=== PATIENT | female | born 1970 | race Caucasian/White ===

== ENCOUNTER 2018-06-16 15:17 | Observation (INO) | payer BC, OTHER ==
--- NOTE | 2018-06-16 15:37 | PDOC ---
Rapid Medical Evaluation Time Seen by Provider: 06/16/18 15:33 Medical Evaluation: Allergies Allergy/AdvReac Type Severity Reaction Status Date / Time erythromycin base Allergy Rash Verified 05/01/11 10:00 [Erythromycin Base] [facility] Allergy Vomiting Uncoded 05/01/11 10:00 06/16/18 15:33 I have performed a brief in-person evaluation of this patient. The patient presents with a chief complaint of: left facial swelling s/p root canal Pertinent physical exam findings: palpable abscess to left upper molar on bucchal surface I have ordered the following: urine, labs, ct facial bones with IV contrast The patient will proceed to the ED for further evaluation. Discharge Disposition - Diagnosis Facial swelling - Referrals - Patient Instructions - Post Discharge Activity
--- NOTE | 2018-06-16 16:09 | PDOC ---
History of Present Illness - General Chief Complaint: Pain, Acute Stated Complaint: PAIN Time Seen by Provider: 06/16/18 15:33 History Source: Patient - History of Present Illness Timing/Duration: other Past History - Past Medical History Allergies/Adverse Reactions: Allergies Allergy/AdvReac Type Severity Reaction Status Date / Time erythromycin base Allergy Rash Verified 06/16/18 15:33 [Erythromycin Base] [facility] Allergy Vomiting Uncoded 06/16/18 15:33 Home Medications: Ambulatory Orders Alprazolam [Xanax] 0.5 mg PO PRN 06/16/18 Clonazepam [Klonopin] 2 mg PO HS 06/16/18 Duloxetine HCl [Cymbalta] 60 mg PO BID 06/16/18 Asthma: Yes COPD: No Psychiatric Problems: Yes (ANXIETY, DEPRESSION) - Immunization History Immunization Up to Date: Yes - Suicide/Smoking/Psychosocial Hx Smoking Status: Yes Smoking History: Current every day smoker Number of Cigarettes Smoked Daily: 20 Information on smoking cessation initiated: No Hx Alcohol Use: No Drug/Substance Use Hx: No Review of Systems - Review of Systems Constitutional: No: Chills, Fever, Malaise *Physical Exam - Vital Signs Last Vital Signs Temp Pulse Resp BP Pulse Ox 98.8 F 95 H 18 158/87 98 06/16/18 15:35 06/16/18 15:35 06/16/18 15:35 06/16/18 15:35 06/16/18 15:35 - Physical Exam General Appearance: Yes: Appropriately Dressed, Moderate Distress HEENT: positive: Normal Voice, Other (L cee-orbital edema, most notably under L lower lid with sig ttp to L face diffusely, no sig erythema, no e/o dental abscess) Neck: positive: Supple. negative: Lymphadenopathy (R), Lymphadenopathy (L) Respiratory/Chest: negative: Respiratory Distress Integumentary: positive: Dry, Warm Neurologic: positive: Fully Oriented, Alert, Normal Mood/Affect ED Treatment Course - LABORATORY CBC & Chemistry Diagram: 06/17/18 07:18 06/16/18 16:46 Medical Decision Making - Medical Decision Making 06/16/18 16:07 48 yo F, h/o depression, anxiety, asthma, here w/ severe L facial pain and swelling. Pt s/p root canal to R upper 2nd molar 5 days ago in the [facility], currently on amoxicillin for ~ 10 days. States she awoke the day after surgery w / L facial pain and swelling. Sxs worsened since then. No f/c. Does report some itching to L face, no oral/tongue swelling or SOB. Only allergy is to erythromycin and states she has taken penicillin, including amoxicillin, in the past with no adverse reactions See exam Facial cellulitis s/p recent root canal to R upper tooth On amox w/ no relief Unlikely allergic rxn given significant pain and no known allergies to pen ( which pt took in past) Exam remarkable for mod distress w/ L facial swelling extending into L cee- orbital area, no e/o abscess at this time -pain control -IV abx -admit 06/16/18 19:00 Pt signed out to DAYAMI Saldaña pending CT read and admission *DC/Admit/Observation/Transfer Diagnosis at time of Disposition: Facial cellulitis - Referrals - Patient Instructions - Post Discharge Activity
[2018-06-16] MEDS ORDERED: morphine CARPU-JECT 4 MG/1 ML DISP.SYRIN IVPUSH ONE (16:10)
[2018-06-16] MEDS ORDERED: CLINDAMYCIN 600MG PREMIX IVPB 600 MG/50 ML BAG IVPB ONE ×2 (16:10→16:15)
[2018-06-16] MEDS ORDERED: morphine SULFATE 4 MG/ML VIAL ONE (16:16)
[2018-06-16] MEDS ORDERED: KETOROLAC TROMETHAMINE 30 MG/1 ML VIAL IVPUSH ONE (16:23)
[2018-06-16] MEDS ORDERED: KETOROLAC TROMETHAMINE 30 MG/1 ML VIAL ONE (16:52)
[2018-06-16 17:18] LABS: BASO % 0.7 % (0-2.0); EOS % 2.5 % (0-4.5); HEMATOCRIT 33.3 % (32.4-45.2); HEMOGLOBIN 11.1 GM/dL (10.7-15.3); LYMPH % 28.9 % (8-40); MCH 27.3 pg (25.7-33.7); MCHC 33.3 g/dl (32.0-36.0); MEAN CELL VOLUME 81.9 fl (80-96); MEAN PLT VOLUME 8.6 fl (7.5-11.1); NEUT % 60.9 % (42.8-82.8); PLATELET COUNT 358 K/MM3 (134-434); RBC 4.06 M/mm3 (3.60-5.2); RDW 14.6 % (11.6-15.6); WHITE BLOOD COUNT 8.7 K/mm3 (4.0-10.0)
[2018-06-16 17:46] LABS: ALBUMIN 3.7 g/dl (3.4-5.0); ALK PHOS 95 U/L (45-117); ANION GAP 5 MMOL/L (8-16); BILIRUBIN,TOTAL 0.2 mg/dL (0.2-1); BLOOD UREA NITROGEN 12 mg/dL (7-18); CHLORIDE 104 mmol/L (98-107); CO2 30 mmol/L (21-32); CREATININE 0.7 mg/dL (0.55-1.3); GLUCOSE,RANDOM 102 mg/dL (74-106); POTASSIUM 4.1 mmol/L (3.5-5.1); SGOT/AST 24 U/L (15-37); SGPT/ALT 28 U/L (13-61); SODIUM 139 mmol/L (136-145); TOT PROT 7.4 g/dl (6.4-8.2)
--- NOTE | 2018-06-16 20:25 | PDOC ---
*Physical Exam - Vital Signs Last Vital Signs Temp Pulse Resp BP Pulse Ox 98.8 F 95 H 18 158/87 98 06/16/18 15:35 06/16/18 15:35 06/16/18 15:35 06/16/18 15:35 06/16/18 15:35 - Physical Exam General Appearance: Yes: Appropriately Dressed HEENT: positive: Other (left sided facial swelling, erythema and tednerness. radiating to periorbital/preseptal area) ED Treatment Course - LABORATORY CBC & Chemistry Diagram: 06/16/18 16:46 06/16/18 16:46 - ADDITIONAL ORDERS Additional order review: Laboratory Results 06/16/18 06/16/18 16:46 16:46 Sodium 139 Potassium 4.1 Chloride 104 Carbon Dioxide 30 Anion Gap 5 L BUN 12 Creatinine 0.7 Creat Clearance w eGFR 90.09 Random Glucose 102 Calcium 10.0 Total Bilirubin 0.2 AST 24 ALT 28 Alkaline Phosphatase 95 Total Protein 7.4 Albumin 3.7 Urine HCG, Qual Negative 06/16/18 16:46 RBC 4.06 MCV 81.9 MCHC 33.3 RDW 14.6 D MPV 8.6 Neutrophils % 60.9 D Lymphocytes % 28.9 D Monocytes % 7.0 Eosinophils % 2.5 D Basophils % 0.7 D - Medications Given in the ED: ED Medications Discontinued Medications Generic Name Dose Route Start Last Admin Trade Name Freq PRN Reason Stop Dose Admin Clindamycin Phosphate 600 mg in 50 mls @ 100 mls/hr 06/16/18 16:10 06/16/18 16:39 Cleocin 600 Mg Premix Ivpb - IVPB 06/16/18 16:39 100 mls/hr ONCE ONE Administration Ketorolac Tromethamine 30 mg 06/16/18 16:23 06/16/18 17:53 Toradol Injection - IVPUSH 06/16/18 16:24 30 mg ONCE ONE Administration Morphine Sulfate 4 mg 06/16/18 16:10 06/16/18 16:39 Morphine Injection - IVPUSH 06/16/18 16:11 4 mg ONCE ONE Administration Medical Decision Making - Medical Decision Making 06/16/18 20:24 CT facial bones reviewed. PCP: Pan Rebollar. plan to place on observation due oral antibiotics failure. 06/16/18 21:02 patient signed out to Dr. kwong/ Dr. [place]. placed on observation *DC/Admit/Observation/Transfer Diagnosis at time of Disposition: Facial cellulitis - Discharge Dispostion Decision to Admit order: Yes - Referrals - Patient Instructions - Post Discharge Activity
--- NOTE | 2018-06-16 21:07 | HP ---
CHIEF COMPLAINT: facial swelling HISTORY OF PRESENT ILLNESS: 48 year old female with a hx of obesity, depression and anxiety presents to the hospital for 1 week of left sided facial pain and swelling since a dental procedure on Friday. Reports that she had a root canal Friday with a revision on Friday due to pain, when the dentist shaved down the tooth. Reports the pain improved Friday but swelling on the left side of the face did not. 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 States that perioperatively, she has been on amoxicillin for 2 weeks. States that she has mild pain around her eye but no direct eye pain or pain with extraocular muscle movement. Reports some pain in her throat and pain while chewing. Has been eating a soft diet. Denies fevers, chills, nausea, vomiting, diarrhea, difficulty swallowing. Dentist: Dr. Tobias Johnson DDS, [place] ([facility]) ER course was notable for: (1) afebrile (2) BP 158 systolic, repeat 162/90 (3) no white count Recent Travel: denies PAST MEDICAL HISTORY: obesity, depression, anxiety PAST SURGICAL HISTORY: 2 C sections Social History: Smoking: current smoker 1 pack every 2 days Alcohol: Socially Drugs: drug use Family History: DM Allergies erythromycin base [Erythromycin Base] Allergy (Verified 06/16/18 15:33) Rash [facility] Allergy (Uncoded 06/16/18 15:33) Vomiting HOME MEDICATIONS: Home Medications Medication Instructions Recorded Albuterol 0.083% Nebulizer Lizeth 1 neb NEB Q4H 05/01/11 [Ventolin *Nebulizer*] REVIEW OF SYSTEMS CONSTITUTIONAL: Absent: fever, chills, diaphoresis, generalized weakness, malaise, loss of appetite, weight change HEENT: Absent: rhinorrhea, nasal congestion, throat pain, throat swelling, difficulty swallowing, mouth swelling, ear pain, eye pain, visual changes CARDIOVASCULAR: Absent: chest pain, syncope, palpitations, irregular heart rate, lightheadedness , peripheral edema RESPIRATORY: Absent: cough, shortness of breath, dyspnea with exertion, orthopnea, wheezing, stridor, hemoptysis GASTROINTESTINAL: Absent: abdominal pain, abdominal distension, nausea, vomiting, diarrhea, constipation, melena, hematochezia GENITOURINARY: Absent: dysuria, frequency, urgency, hesitancy, hematuria, flank pain, genital pain MUSCULOSKELETAL: Absent: myalgia, arthralgia, joint swelling, back pain, neck pain SKIN: Absent: rash, itching, pallor HEMATOLOGIC/IMMUNOLOGIC: Absent: easy bleeding, easy bruising, lymphadenopathy, frequent infections ENDOCRINE: Absent: unexplained weight gain, unexplained weight loss, heat intolerance, cold intolerance NEUROLOGIC: Absent: headache, focal weakness or paresthesias, dizziness, unsteady gait, seizure, mental status changes, bladder or bowel incontinence PSYCHIATRIC: Absent: anxiety, depression, suicidal or homicidal ideation, hallucinations. PHYSICAL EXAMINATION Vital Signs - 24 hr 06/16/18 15:35 Temperature 98.8 F Pulse Rate 95 H Respiratory 18 Rate Blood Pressure 158/87 O2 Sat by Pulse 98 Oximetry (%) GENERAL: A&Ox3, no acute distress EYES: PERRLA, EOMI ENT: Moist mucus membranes, no pharyngeal erythema FACE: erythema on L maxilla and around the eye, no conjunctivitis NECK: No JVD, no lymphadenopahy palpated LUNGS: CTA, no wheezes HEART: RRR, no murmurs ABDOMEN: Soft, nontender, BS present MUSCULOSKELETAL: No CVA Tenderness EXTREMITIES: 2+ pulses, no edema. NEUROLOGICAL: Cranial nerves II-XII intact. Laboratory Results - last 24 hr 06/16/18 06/16/18 06/16/18 16:46 16:46 16:46 WBC 8.7 RBC 4.06 Hgb 11.1 Hct 33.3 MCV 81.9 MCH 27.3 D MCHC 33.3 RDW 14.6 D Plt Count 358 D MPV 8.6 Absolute Neuts (auto) 5.3 Neutrophils % 60.9 D Lymphocytes % 28.9 D Monocytes % 7.0 Eosinophils % 2.5 D Basophils % 0.7 D Nucleated RBC % 0 Sodium 139 Potassium 4.1 Chloride 104 Carbon Dioxide 30 Anion Gap 5 L BUN 12 Creatinine 0.7 Creat Clearance w eGFR 90.09 Random Glucose 102 Calcium 10.0 Total Bilirubin 0.2 AST 24 ALT 28 Alkaline Phosphatase 95 Total Protein 7.4 Albumin 3.7 Urine HCG, Qual Negative ASSESSMENT/PLAN: 48 year old female with hx of asthma s/p dental procedure 5 days ago presented to hospital with facial pain and swelling, failing outpatient amoxicillin regimen #Facial Cellulitis: no evidence of preseptal or orbital cellulitis, failed outpatient amoxicillin -draw cultures -CT facial bones showed soft tissue swelling in submandibular fossa with lymphadenopathy measuring 1.7cm x 1cm likely 2/2 infectious process -clindamycin 600mg TID -toradol for pain -ID consultation #Elevated BP: BP 158 systolic, repeat 160s systolic. Likely contributing factor is pain -monitor vitals #Morbid Obesity: BMI 37.8 -dietary consultation #FEN -no standing fluids -lytes normal -regular diet in AM #Prophylaxis -lovenox #Disposition -admit obs for IV abx, pending cultures and ID consultation Visit type - Emergency Visit Emergency Visit: Yes ED Registration Date: 06/16/18 Care time: The patient presented to the Emergency Department on the above date and was hospitalized for further evaluation of their emergent condition. - New Patient This patient is new to me today: Yes Date on this admission: 06/16/18 - Critical Care Critical Care patient: No
--- NOTE | 2018-06-16 21:29 | PN ---
Teaching Attending Note Name of Resident: Horacio Polanco ATTENDING PHYSICIAN STATEMENT I saw and evaluated the patient. I reviewed the resident's note and discussed the case with the resident. I agree with the resident's findings and plan as documented. SUBJECTIVE: Patient is a 48 year old woman with PMH of obesity, depression and anxiety who presents to the ER with 1 week of left sided facial pain and swelling after a recent root canal dental procedure on Friday. Reports the pain improved on Friday but swelling on the left side of the face did not. 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 States that perioperatively, she has been on amoxicillin for 2 weeks. Patient says that she has mild pain around her eye but no photophobia or blurring of vision. Has pain in her throat and pain while chewing. Has been eating a soft diet. Denies fevers, chills, nausea, vomiting, diarrhea or difficulty swallowing. OBJECTIVE: Alert Vital Signs Period Temp Pulse Resp BP Sys/Fernandez Pulse Ox Last 24 Hr 98.8 F-98.8 F 86-95 18-20 158-191/87-93 98-100 HEENT: No Jaundice, eye redness or discharge, PERRLA, EOMI. Left facial edema extending to the periorbital area with some erythema. No obvious oral lesions. Normocephalic, atraumatic. External ears are normal and hearing is grossly intact. No nasal discharge. Neck: Supple, nontender. No palpable adenopathy or thyromegaly. No JVD Chest: Good effort. Clear to auscultation and percussion. Heart: Regular. No S3, rub or murmur Abdomen: Not distended, soft, nontender and no HSM. No rebound or guarding. Normal bowel sounds. Ext: Peripheral pulses intact. No leg edema. Skin: Warm and dry. No petechiae, rash or ecchymosis. Neuro: Alert. Oriented x3. CN 2-12 grossly intact. Sensation grossly intact in all four extremities and DTR are symmetric. Psych: Appropriate mood and affect. Good insight. Current Medications Generic Name Dose Route Start Last Admin Trade Name Freq PRN Reason Stop Dose Admin Albuterol Sulfate 1 amp 06/17/18 00:00 Ventolin 0.083% Nebulizer Soln - NEB RQ4H [facility] Enoxaparin Sodium 40 mg 06/17/18 10:00 Lovenox - SQ DAILY [facility] Clindamycin Phosphate 600 mg in 50 mls @ 100 mls/hr 06/17/18 02:00 Cleocin 600 Mg Premix Ivpb - IVPB Q8H-IV [facility] Protocol Ketorolac Tromethamine 10 mg 06/16/18 22:30 06/16/18 22:57 Toradol PO 06/21/18 22:29 10 mg TID [facility] Administration Home Medications Medication Instructions Recorded Alprazolam [Xanax] 0.5 mg PO PRN 06/16/18 Clonazepam [Klonopin] 2 mg PO HS 06/16/18 Duloxetine HCl [Cymbalta] 60 mg PO BID 06/16/18 Abnormal Lab Results 06/16/18 16:46 Anion Gap 5 L ASSESSMENT AND PLAN: 1. Facial Cellulitis - CT scan of facial bones shows soft tissue swelling/edema with no fluid collection or abscess. Will treat her with IV clindamycin and consult ID. Monitor BP closely since she may have undiagnosed hypertension. Nonpharmacologic measures to control hypertension like weight loss, salt restriction and exercise discussed. 2. Obesity Counseled on the risks associated with obesity. Will provide patient all the necessary assistance, counseling and positive reinforcement to facilitate weight loss. Consult airport operations supervisor. 3. DVT prophylaxis - Lovenox 40 mg SQ q 24 hours. 4. Advance directives - Full code
[2018-06-16] MEDS ORDERED: ALPRAZolam 0.25 MG TABLET PO ONE (21:30)
[2018-06-16] MEDS ORDERED: ALPRAZolam 0.25 MG TABLET ONE (21:37)
[2018-06-16] MEDS: KETOROLAC TROMETHAMINE 10 MG TABLET PO SCH (22:57)
[2018-06-17] MEDS: ALBUTEROL SO4 0.083% IH SOL 2.5 MG/3 ML VIAL.NEB. NEB SCH ×3 (00:05→07:40)
[2018-06-17 01:55] VITALS: BMI 34.3
[2018-06-17] MEDS: CLINDAMYCIN 600MG PREMIX IVPB 600 MG/50 ML BAG IVPB SCH ×2 (02:36→10:02)
[2018-06-17] MEDS: ACETAMINOPHEN 325 MG TABLET (FP) PO PRN ×2 (04:00→12:01)
[2018-06-17] MEDS: KETOROLAC TROMETHAMINE 10 MG TABLET PO SCH ×3 (06:20→21:38)
--- NOTE | 2018-06-17 08:17 | PN ---
Physical Exam: SUBJECTIVE: Patient seen and examined at bedside- no acute events overnight; patient states that she is still in pain though she is feeling better; she is having some eye pain with movement though the area of cellultiis has decreased in erythema according to patients daughter- she feels very anxious ; she denies any CP/SOB/N/V fevers or chills OBJECTIVE: Vital Signs Period Temp Pulse Resp BP Sys/Fernandez Pulse Ox Last 24 Hr 97.8 F-98.8 F 62-95 18-20 134-191/56-93 98-100 GENERAL: The patient is awake, alert, tearful and anxious EYES: PEERLA: EOMI: slight pain within movement; . Left facial edema extending to the periorbital area with some erythema. NECK: no JVD; no lymphadenopathy LUNGS: CTA B/L; no rales, rhonchi or wheezing HEART: Regular rate and rhythm, S1, S2 without murmur, rub or gallop. ABDOMEN: Soft, nontender, nondistended, normoactive bowel sounds, no guarding, no rebound, no hepatosplenomegaly, no masses. EXTREMITIES: 2+ pulses, warm, well-perfused, no edema. PSYCH: Normal mood, normal affect. SKIN: Warm, dry, normal turgor, no rashes or lesions noted Laboratory Results - last 24 hr 06/16/18 06/16/18 06/16/18 16:46 16:46 16:46 WBC 8.7 RBC 4.06 Hgb 11.1 Hct 33.3 MCV 81.9 MCH 27.3 D MCHC 33.3 RDW 14.6 D Plt Count 358 D MPV 8.6 Absolute Neuts (auto) 5.3 Neutrophils % 60.9 D Lymphocytes % 28.9 D Monocytes % 7.0 Eosinophils % 2.5 D Basophils % 0.7 D Nucleated RBC % 0 Sodium 139 Potassium 4.1 Chloride 104 Carbon Dioxide 30 Anion Gap 5 L BUN 12 Creatinine 0.7 Creat Clearance w eGFR 90.09 Random Glucose 102 Calcium 10.0 Total Bilirubin 0.2 AST 24 ALT 28 Alkaline Phosphatase 95 Total Protein 7.4 Albumin 3.7 Urine HCG, Qual Negative Active Medications Generic Name Dose Route Start Last Admin Trade Name Freq PRN Reason Stop Dose Admin Acetaminophen 650 mg 06/17/18 03:44 06/17/18 04:00 Tylenol - PO 650 mg Q6H PRN Administration PAIN LEVEL 6-10 Albuterol Sulfate 1 amp 06/17/18 00:00 06/17/18 04:30 Ventolin 0.083% Nebulizer Soln - NEB Not Given RQ4H [facility] Enoxaparin Sodium 40 mg 06/17/18 10:00 Lovenox - SQ DAILY [facility] Clindamycin Phosphate 600 mg in 50 mls @ 100 mls/hr 06/17/18 02:00 06/17/18 02:36 Cleocin 600 Mg Premix Ivpb - IVPB 100 mls/hr Q8H-IV [facility] Administration Protocol Ketorolac Tromethamine 10 mg 06/16/18 22:30 06/17/18 06:20 Toradol PO 06/21/18 22:29 10 mg TID [facility] Administration ASSESSMENT/PLAN: 48 year old female with hx of asthma s/p dental procedure 5 days ago presented to hospital with facial pain and swelling, failing outpatient amoxicillin regimen #Facial Cellulitis: -evidence of periorbtal cellulitis -blood cx pending -CT facial bones showed soft tissue swelling in submandibular fossa with lymphadenopathy measuring 1.7cm x 1cm likely 2/2 infectious process -clindamycin 600mg TID; -toradol for pain -ID consultation #Elevated BP: BP 158 systolic, repeat 160s systolic. Likely contributing factor is pain -monitor vitals #Morbid Obesity: BMI 37.8 -dietary consultation #FEN -no standing fluids -lytes normal -regular diet in AM #Prophylaxis -lovenox Problem List - Problems (1) Facial cellulitis Code(s): L03.211 - CELLULITIS OF FACE Visit type - Emergency Visit Emergency Visit: Yes ED Registration Date: 06/16/18 Care time: The patient presented to the Emergency Department on the above date and was hospitalized for further evaluation of their emergent condition. - New Patient This patient is new to me today: Yes Date on this admission: 06/17/18 - Critical Care Critical Care patient: No
[2018-06-17 08:33] LABS: HEMOGLOBIN 10.1 GM/dL (10.7-15.3); MCH 27.1 pg (25.7-33.7); MCHC 33.6 g/dl (32.0-36.0); MEAN CELL VOLUME 80.8 fl (80-96); MEAN PLT VOLUME 8.1 fl (7.5-11.1); PLATELET COUNT 331 K/MM3 (134-434); RBC 3.71 M/mm3 (3.60-5.2); RDW 14.6 % (11.6-15.6); WHITE BLOOD COUNT 6.5 K/mm3 (4.0-10.0)
[2018-06-17 09:07] LABS: MAGNESIUM 2.1 mg/dL (1.8-2.4); PHOSPHOROUS 4.3 mg/dL (2.5-4.9); POTASSIUM 3.7 mmol/L (3.5-5.1)
[2018-06-17] MEDS ORDERED: ALBUTEROL SO4 0.083% IH SOL 2.5 MG/3 ML VIAL.NEB. NEB PRN (09:37)
[2018-06-17] MEDS: ENOXAPARIN NA (PORCINE) 40 MG/0.4 ML DISP.SYRIN SQ SCH (10:03)
[2018-06-17 10:13] LABS: CREATININE 0.6 mg/dL (0.55-1.3)
[2018-06-17] MEDS ORDERED: PT OWN MED DRAWER 7, Y5N ONE ×3 (14:02→15:37)
--- NOTE | 2018-06-17 15:51 | PN ---
Progress Note (short form) - Note Progress Note: ID CONSULT DICTATED L FACIAL CELLULITIS SECONDARY TO DENTAL SOURCE UNASYN 3GM IVPB Q6H
--- NOTE | 2018-06-17 16:26 | CONS ---
DATE OF CONSULTATION: 06/17/2018 HISTORY OF PRESENT ILLNESS: The patient is a 48-year-old female who is evaluated for facial cellulitis. The patient underwent root canal surgery on June 12, 2018. She had been prescribed amoxicillin prophylactically. Despite antibiotic therapy, she developed worsening left facial swelling and erythema. She was advised evaluation in the emergency room. In the emergency room patient was noted to have left facial cellulitis. A CAT scan of the head was performed and showed soft tissue swelling with stranding of the left submandibular fossa and large lymph nodes. No gross fluid collection or abscess. She was empirically treated with clindamycin. Patient reports significant improvement in the left facial swelling. She denies any visual disturbance. No blurry vision or visual disturbance or impairment of extraocular muscles. No respiratory compromise. PAST MEDICAL HISTORY: Positive for obesity, anxiety. PAST SURGICAL HISTORY: Status post cesarian sections. ALLERGIES: ERYTHROMYCIN. MEDICATIONS: Include Xanax, Klonopin, Cymbalta. 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 Positive tobacco use history. REVIEW OF SYSTEMS: Neurologic: No loss of consciousness, seizure activity, focal weakness. Cardiac: Negative chest pain or palpitations. Respiratory: Negative cough or sputum production. Gastrointestinal: Negative vomiting or diarrhea. Genitourinary: Negative for urinary tract infection. LABORATORY DATA: White count 6.5, hematocrit 30.0, platelet count 331. BUN 10, creatinine 0.6. Liver enzymes normal. Urine test negative. Blood cultures are pending. PHYSICAL EXAMINATION: General: She is awake and alert, in no acute distress. Breathing is nonlabored. Vital Signs: Temperature 98.8, blood pressure 158/88, pulse 76, regular. Respiration 20 per minute. Examination Of The Face: There is left periorbital swelling as well as left malar swelling extending to the left mandible. There is tenderness and warmth over the area. There is tender left submandibular lymph node. Oral cavity reveals edema of the left upper gingiva. No muna pus is noted. Neck: Supple. Heart: Heart sounds S1, S2. Lungs: Clear. No stridor or wheeze. Abdomen: Obese, soft, nontender. Extremities: Negative for edema. IMPRESSION: Left facial cellulitis secondary to dental source. Advised Unasyn 3 g IV piggyback every 6 hours, analgesics, dental followup. Thank you for the kind referral. MANUELA GARCIA M.D. [id number]
--- NOTE | 2018-06-17 16:36 | PN ---
Teaching Attending Note Name of Resident: Sarah Tran ATTENDING PHYSICIAN STATEMENT I saw and evaluated the patient. I reviewed the resident's note and discussed the case with the resident. I agree with the resident's findings and plan as documented. SUBJECTIVE: Feels some mild improvement in facial pain/swelling. No fever. No double vision, eye discharge. No fever/chills. OBJECTIVE: Afebrile, Hemodynamically Stable. Last Vital Signs Temp Pulse Resp BP Pulse Ox 98.8 F 76 20 158/88 100 06/17/18 14:00 06/17/18 14:00 06/17/18 14:00 06/17/18 14:00 06/17/18 14:00 HEENT - L facial swelling/tenderness, erythema. ASHLEY, EOMI. Heart - S1, S2, RRR Lungs - clear to auscultation Abdomen - Soft, non-tender. Bowel Sounds normal. Extremities- no edema, no calf tenderness Laboratory Results - last 24 hr 06/16/18 06/16/18 06/16/18 16:46 16:46 16:46 WBC 8.7 RBC 4.06 Hgb 11.1 Hct 33.3 MCV 81.9 MCH 27.3 D MCHC 33.3 RDW 14.6 D Plt Count 358 D MPV 8.6 Absolute Neuts (auto) 5.3 Neutrophils % 60.9 D Lymphocytes % 28.9 D Monocytes % 7.0 Eosinophils % 2.5 D Basophils % 0.7 D Nucleated RBC % 0 Sodium 139 Potassium 4.1 Chloride 104 Carbon Dioxide 30 Anion Gap 5 L BUN 12 Creatinine 0.7 Creat Clearance w eGFR 90.09 Est GFR (CKD-EPI)AfAm Est GFR (CKD-EPI)NonAf Random Glucose 102 Calcium 10.0 Phosphorus Magnesium Total Bilirubin 0.2 AST 24 ALT 28 Alkaline Phosphatase 95 Total Protein 7.4 Albumin 3.7 Urine HCG, Qual Negative 06/17/18 06/17/18 07:18 07:18 WBC 6.5 RBC 3.71 Hgb 10.1 L Hct 30.0 L MCV 80.8 MCH 27.1 MCHC 33.6 RDW 14.6 Plt Count 331 MPV 8.1 Absolute Neuts (auto) Neutrophils % Lymphocytes % Monocytes % Eosinophils % Basophils % Nucleated RBC % Sodium 137 Potassium 3.7 Chloride 105 Carbon Dioxide 26 Anion Gap 7 L BUN 10 Creatinine 0.6 Creat Clearance w eGFR Est GFR (CKD-EPI)AfAm 126.69 Est GFR (CKD-EPI)NonAf 109.31 Random Glucose 101 Calcium 9.0 Phosphorus 4.3 Magnesium 2.1 Total Bilirubin AST ALT Alkaline Phosphatase Total Protein Albumin Urine HCG, Qual Current Medications Generic Name Dose Route Start Last Admin Trade Name Freq PRN Reason Stop Dose Admin Acetaminophen 650 mg 06/17/18 03:44 06/17/18 12:01 Tylenol - PO 650 mg Q6H PRN Administration PAIN LEVEL 6-10 Albuterol Sulfate 1 amp 06/17/18 09:37 Ventolin 0.083% Nebulizer Soln - NEB RQ4H PRN ASTHMA Enoxaparin Sodium 40 mg 06/17/18 10:00 06/17/18 10:03 Lovenox - SQ 40 mg DAILY GURDEEP Administration Ampicillin Sodium/Sulbactam 100 mls @ 200 mls/hr 06/17/18 16:00 Sodium 3 gm/ Sodium Chloride IVPB Q6H-IV GURDEEP Ketorolac Tromethamine 10 mg 06/16/18 22:30 06/17/18 15:23 Toradol PO 06/21/18 22:29 10 mg TID GURDEEP Administration Home Medications Medication Instructions Recorded Alprazolam [Xanax] 0.5 mg PO PRN 06/16/18 Clonazepam [Klonopin] 2 mg PO HS 06/16/18 Duloxetine HCl [Cymbalta] 60 mg PO BID 06/16/18 ASSESSMENT AND PLAN: 48 year old female with history of Depression/Anxiety, presents with 3-4 day history of L sided facial pain/swelling/redness s/p dental procedure/root canal 06/12/18 1. Acute Facial Cellulitis secondary to Dental Procedure Failed outpatient treatment with Amoxicillin. Initially treated with Clindamycin, switched to Unasyn CT facial bones shows soft tissue swelling in submandibular fossa with lymphadenopathy. ID Following 2. Depression/Anxiety - stable - no SI - Continue home meds. DVT Px - Lovenox SQ
[2018-06-17] MEDS ORDERED: PATIENT'S OWN MEDICATION (NON-FORMULARY) (Alprazolam [Xanax] 0.5 MG) PO SCH (16:45)
[2018-06-17] MEDS: AMPICILLIN NA/SULBACTAM NA 3 GM in SODIUM CHLORIDE 100 ML IVPB SCH ×2 (18:18→21:37)
[2018-06-17] MEDS: DULoxetine HCL 30 MG CAPSULE.DR (FP) PO SCH (21:37)
[2018-06-17] MEDS ORDERED: clonazePAM 2 MG TABLET PO SCH (22:00)
[2018-06-17] MEDS ORDERED: DULoxetine HCL 60 MG CAPSULE.DR PO SCH (22:00)
[2018-06-17] MEDS: clonazePAM 0.5 MG TABLET PO SCH (22:25)
[2018-06-18] MEDS: AMPICILLIN NA/SULBACTAM NA 3 GM in SODIUM CHLORIDE 100 ML IVPB SCH ×4 (02:32→21:26)
[2018-06-18] MEDS: KETOROLAC TROMETHAMINE 10 MG TABLET PO SCH ×3 (06:32→21:25)
[2018-06-18] MEDS ORDERED: ALPRAZolam 0.25 MG TABLET PO PRN (07:32)
[2018-06-18 07:43] LABS: HEMATOCRIT 29.2 % (32.4-45.2); HEMOGLOBIN 10.1 GM/dL (10.7-15.3); MCH 27.9 pg (25.7-33.7); MCHC 34.4 g/dl (32.0-36.0); MEAN PLT VOLUME 8.1 fl (7.5-11.1); PLATELET COUNT 336 K/MM3 (134-434); RDW 14.5 % (11.6-15.6)
[2018-06-18 07:56] LABS: CALCIUM 8.7 mg/dL (8.5-10.1); CREATININE 0.6 mg/dL (0.55-1.3); PHOSPHOROUS 3.7 mg/dL (2.5-4.9); POTASSIUM 3.8 mmol/L (3.5-5.1)
--- NOTE | 2018-06-18 08:39 | PN ---
Physical Exam: SUBJECTIVE: Patient seen and examined at bedside- no acute events overnight patient states that she is feeling much better and she feels her facial swelling si getting better; she denies any CP/SOB/N/V fevers or chills OBJECTIVE: Vital Signs Period Temp Pulse Resp BP Sys/Fernandez Pulse Ox Last 24 Hr 98.2 F-99.1 F 66-84 20-20 141-158/69-88 100-100 GENERAL: The patient is awake, alert, and fully oriented, in no acute distress. EYES:PEERLA: EOMI no scleral icterus no pain with EOMI ENT: L sided periorbital swelling improving- decreasing in erythema LUNGS: CTA B/L: no rales, rhonchi or wheezing. HEART: Regular rate and rhythm, S1, S2 without murmur, rub or gallop. ABDOMEN: Soft, nontender, nondistended, normoactive bowel sounds, no guarding, no rebound, no hepatosplenomegaly, no masses. EXTREMITIES: 2+ pulses, warm, well-perfused, no edema. PSYCH: Normal mood, normal affect. SKIN: Warm, dry, normal turgor, no rashes or lesions noted Laboratory Results - last 24 hr 06/17/18 06/17/18 06/18/18 07:18 07:18 06:40 WBC 6.5 8.0 RBC 3.71 3.60 Hgb 10.1 L 10.1 L Hct 30.0 L 29.2 L MCV 80.8 81.0 MCH 27.1 27.9 MCHC 33.6 34.4 RDW 14.6 14.5 Plt Count 331 336 MPV 8.1 8.1 Sodium 137 Potassium 3.7 Chloride 105 Carbon Dioxide 26 Anion Gap 7 L BUN 10 Creatinine 0.6 Est GFR (CKD-EPI)AfAm 126.69 Est GFR (CKD-EPI)NonAf 109.31 Random Glucose 101 Calcium 9.0 Phosphorus 4.3 Magnesium 2.1 06/18/18 06:40 WBC RBC Hgb Hct MCV MCH MCHC RDW Plt Count MPV Sodium 140 Potassium 3.8 Chloride 108 H Carbon Dioxide 25 Anion Gap 7 L BUN 13 Creatinine 0.6 Est GFR (CKD-EPI)AfAm 126.69 Est GFR (CKD-EPI)NonAf 109.31 Random Glucose 116 H Calcium 8.7 Phosphorus 3.7 Magnesium 2.0 Active Medications Generic Name Dose Route Start Last Admin Trade Name Freq PRN Reason Stop Dose Admin Acetaminophen 650 mg 06/17/18 03:44 06/17/18 12:01 Tylenol - PO 650 mg Q6H PRN Administration PAIN LEVEL 6-10 Albuterol Sulfate 1 amp 06/17/18 09:37 06/17/18 20:50 Ventolin 0.083% Nebulizer Soln - NEB 1 amp RQ4H PRN Administration ASTHMA Alprazolam 0.5 mg 06/18/18 07:32 Xanax - PO Q8H PRN ANXIETY Clonazepam 2 mg 06/17/18 23:45 06/17/18 22:25 Klonopin - PO Not Given HS GURDEEP Duloxetine HCl 60 mg 06/17/18 22:00 06/17/18 21:37 Cymbalta - PO 60 mg BID GURDEEP Administration Enoxaparin Sodium 40 mg 06/17/18 10:00 06/17/18 10:03 Lovenox - SQ 40 mg DAILY GURDEEP Administration Ampicillin Sodium/Sulbactam 100 mls @ 200 mls/hr 06/17/18 16:00 06/18/18 02: 32 Sodium 3 gm/ Sodium Chloride IVPB 200 mls/hr Q6H-IV GURDEEP Administration Ketorolac Tromethamine 10 mg 06/16/18 22:30 06/18/18 06:32 Toradol PO 06/21/18 22:29 10 mg TID GURDEEP Administration ASSESSMENT/PLAN: 48 year old female with hx of asthma s/p dental procedure 5 days ago presented to hospital with facial pain and swelling, failing outpatient amoxicillin regimen #Facial Cellulitis: -evidence of periorbtal cellulitis -blood cx pending -CT facial bones showed soft tissue swelling in submandibular fossa with lymphadenopathy measuring 1.7cm x 1cm likely 2/2 infectious process -Unsayn 3mgQ6H; -toradol for pain -ID consultation- can switch tomorrow to oral abx as per ID #Morbid Obesity: BMI 37.8 -dietary consultation #FEN -no standing fluids -lytes normal -regular diet in AM #Prophylaxis -lovenox Problem List - Problems (1) Facial cellulitis Code(s): L03.211 - CELLULITIS OF FACE Visit type - Emergency Visit Emergency Visit: Yes ED Registration Date: 05/07/19 Care time: The patient presented to the Emergency Department on the above date and was hospitalized for further evaluation of their emergent condition. - New Patient This patient is new to me today: No - Critical Care Critical Care patient: No
[2018-06-18] MEDS: DULoxetine HCL 30 MG CAPSULE.DR (FP) PO SCH ×2 (09:52→21:30)
[2018-06-18] MEDS: ENOXAPARIN NA (PORCINE) 40 MG/0.4 ML DISP.SYRIN SQ SCH (09:53)
[2018-06-18] MEDS ORDERED: TOPIRAMATE 100 MG TABLET PO SCH (10:00)
[2018-06-18] MEDS ORDERED: PT OWN MED DRAWER 7, Y5N ONE ×2 (11:19→14:54)
--- NOTE | 2018-06-18 12:51 | PN ---
Progress Note, Physician History of Present Illness: AWAKE,ALERT REPORTS SOME L FACIAL PAIN NO C/O FEVER/ CHILLS AFEBRILE WBC WNL - Current Medication List Current Medications: Active Medications Acetaminophen (Tylenol -) 650 mg PO Q6H PRN PRN Reason: PAIN LEVEL 6-10 Last Admin: 06/17/18 12:01 Dose: 650 mg Albuterol Sulfate (Ventolin 0.083% Nebulizer Soln -) 1 amp NEB RQ4H PRN PRN Reason: ASTHMA Last Admin: 06/17/18 20:50 Dose: 1 amp Alprazolam (Xanax -) 0.5 mg PO Q8H PRN PRN Reason: ANXIETY Clonazepam (Klonopin -) 2 mg PO HS [facility] Last Admin: 06/17/18 22:25 Dose: Not Given Duloxetine HCl (Cymbalta -) 60 mg PO BID [facility] Last Admin: 06/18/18 09:52 Dose: 60 mg Enoxaparin Sodium (Lovenox -) 40 mg SQ DAILY [facility] Last Admin: 06/18/18 09:53 Dose: 40 mg Ampicillin Sodium/Sulbactam (Sodium 3 gm/ Sodium Chloride) 100 mls @ 200 mls/ hr IVPB Q6H-IV [facility] Last Admin: 06/18/18 09:48 Dose: 200 mls/hr Ketorolac Tromethamine (Toradol) 10 mg PO TID [facility] Stop: 06/21/18 22:29 Last Admin: 06/18/18 06:32 Dose: 10 mg - Objective Vital Signs: Vital Signs Temperature 98.0 F 06/18/18 10:10 Pulse Rate 62 06/18/18 10:10 Respiratory Rate 20 06/18/18 10:10 Blood Pressure 161/95 06/18/18 10:10 O2 Sat by Pulse Oximetry (%) 100 06/18/18 06:00 Constitutional: Yes: No Distress Eyes: Yes: Conjunctiva Clear HENT: Yes: Other (DECREASED L FACIAL SWELLING / ERYTHEMA. + TENDER L SUBMANDIBULAR LN) Cardiovascular: Yes: Regular Rate and Rhythm, S1, S2 Respiratory: Yes: CTA Bilaterally Gastrointestinal: Yes: Normal Bowel Sounds, Soft. No: Tenderness Edema: No Labs: CBC, BMP 06/18/18 06:40 06/18/18 06:40 Assessment/Plan L FACIAL CELLULITIS IMPROVED DENTAL INFECTION FAILED OUTPATIENT ORAL ANTIBIOTIC THERAPY MAY SUBSTITUTE AUGMENTIN 875MG PO BID NEXT 24HR
--- NOTE | 2018-06-18 15:29 | PN ---
Teaching Attending Note Name of Resident: Sarah Tran ATTENDING PHYSICIAN STATEMENT I saw and evaluated the patient. I reviewed the resident's note and discussed the case with the resident. I agree with the resident's findings and plan as documented. SUBJECTIVE: Feels some improvement in facial pain/swelling. No fever. No double vision. No fever/chills. OBJECTIVE: Afebrile, Hemodynamically Stable. Last Vital Signs Temp Pulse Resp BP Pulse Ox 98.5 F 71 20 161/80 100 06/18/18 15:10 06/18/18 15:10 06/18/18 15:10 06/18/18 15:10 06/18/18 06:00 HEENT - L facial swelling/tenderness, erythema improved. ASHLEY, EOMI. Heart - S1, S2, RRR Lungs - clear to auscultation Abdomen - Soft, non-tender. Bowel Sounds normal. Extremities- no edema, no calf tenderness Laboratory Results - last 24 hr 06/18/18 06/18/18 06:40 06:40 WBC 8.0 RBC 3.60 Hgb 10.1 L Hct 29.2 L MCV 81.0 MCH 27.9 MCHC 34.4 RDW 14.5 Plt Count 336 MPV 8.1 Sodium 140 Potassium 3.8 Chloride 108 H Carbon Dioxide 25 Anion Gap 7 L BUN 13 Creatinine 0.6 Est GFR (CKD-EPI)AfAm 126.69 Est GFR (CKD-EPI)NonAf 109.31 Random Glucose 116 H Calcium 8.7 Phosphorus 3.7 Magnesium 2.0 Current Medications Generic Name Dose Route Start Last Admin Trade Name Freq PRN Reason Stop Dose Admin Acetaminophen 650 mg 06/17/18 03:44 06/17/18 12:01 Tylenol - PO 650 mg Q6H PRN Administration PAIN LEVEL 6-10 Albuterol Sulfate 1 amp 06/17/18 09:37 06/17/18 20:50 Ventolin 0.083% Nebulizer Soln - NEB 1 amp RQ4H PRN Administration ASTHMA Alprazolam 0.5 mg 06/18/18 07:32 Xanax - PO Q8H PRN ANXIETY Clonazepam 2 mg 06/17/18 23:45 06/17/18 22:25 Klonopin - PO Not Given HS GURDEEP Duloxetine HCl 60 mg 06/17/18 22:00 05/09/19 09:52 Cymbalta - PO 60 mg BID GURDEEP Administration Enoxaparin Sodium 40 mg 06/17/18 10:00 06/18/18 09:53 Lovenox - SQ 40 mg DAILY GURDEEP Administration Ampicillin Sodium/Sulbactam 100 mls @ 200 mls/hr 06/17/18 16:00 06/18/18 14: 55 Sodium 3 gm/ Sodium Chloride IVPB 200 mls/hr Q6H-IV GURDEEP Administration Ketorolac Tromethamine 10 mg 06/16/18 22:30 06/18/18 14:55 Toradol PO 06/21/18 22:29 10 mg TID GURDEEP Administration ASSESSMENT AND PLAN: 48 year old female with history of Depression/Anxiety, presents with 3-4 day history of L sided facial pain/swelling/redness s/p dental procedure/root canal 06/12/18 1. Acute Facial Cellulitis secondary to Dental Procedure Failed outpatient treatment with Amoxicillin. Initially treated with Clindamycin, switched to Unasyn - Day 2 CT facial bones shows soft tissue swelling in submandibular fossa with lymphadenopathy, no abscess. ID Following - recommends further IV Abx therapy. 2. Depression/Anxiety - stable - no SI - Continue Xanax, Klonopin, Cymbalta. DVT Px - Lovenox SQ
[2018-06-18] MEDS: clonazePAM 0.5 MG TABLET PO SCH (22:00)
[2018-06-19] MEDS: AMPICILLIN NA/SULBACTAM NA 3 GM in SODIUM CHLORIDE 100 ML IVPB SCH (02:14)
[2018-06-19] MEDS: KETOROLAC TROMETHAMINE 10 MG TABLET PO SCH (06:01)
[2018-06-19 06:21] VITALS: PULSE 70
[2018-06-19 06:48] LABS: HEMATOCRIT 31.2 % (32.4-45.2); HEMOGLOBIN 10.5 GM/dL (10.7-15.3); MCH 27.3 pg (25.7-33.7); MCHC 33.7 g/dl (32.0-36.0); MEAN CELL VOLUME 81.1 fl (80-96); PLATELET COUNT 352 K/MM3 (134-434); RBC 3.85 M/mm3 (3.60-5.2); RDW 14.6 % (11.6-15.6); WHITE BLOOD COUNT 7.5 K/mm3 (4.0-10.0)
[2018-06-19 07:26] LABS: CALCIUM 9.1 mg/dL (8.5-10.1); CREATININE 0.5 mg/dL (0.55-1.3); POTASSIUM 3.8 mmol/L (3.5-5.1)
[2018-06-19] MEDS ORDERED: AMOX TR/POT CLAV 875MG/125MG TABLETS (FP) PO SCH (08:00)
[2018-06-19] MEDS: DULoxetine HCL 30 MG CAPSULE.DR (FP) PO SCH (09:28)
[2018-06-19] MEDS: ENOXAPARIN NA (PORCINE) 40 MG/0.4 ML DISP.SYRIN SQ SCH (09:28)
--- NOTE | 2018-06-19 11:11 | PN ---
Progress Note, Physician History of Present Illness: AWAKE,ALERT L FACIAL PAIN IMPROVED NO C/O FEVER/ CHILLS AFEBRILE WBC WNL - Current Medication List Current Medications: Active Medications Acetaminophen (Tylenol -) 650 mg PO Q6H PRN PRN Reason: PAIN LEVEL 6-10 Last Admin: 06/17/18 12:01 Dose: 650 mg Albuterol Sulfate (Ventolin 0.083% Nebulizer Soln -) 1 amp NEB RQ4H PRN PRN Reason: ASTHMA Last Admin: 06/17/18 20:50 Dose: 1 amp Alprazolam (Xanax -) 0.5 mg PO Q8H PRN PRN Reason: ANXIETY Amoxicillin/Clavulanate Potassium (Augmentin - 875mg Tablet) 1 tab PO BID@0800, 1730 [facility] Last Admin: 06/19/18 09:28 Dose: 1 tab Clonazepam (Klonopin -) 2 mg PO HS [facility] Last Admin: 06/18/18 22:00 Dose: Not Given Duloxetine HCl (Cymbalta -) 60 mg PO BID [facility] Last Admin: 06/19/18 09:28 Dose: 60 mg Enoxaparin Sodium (Lovenox -) 40 mg SQ DAILY [facility] Last Admin: 06/19/18 09:28 Dose: 40 mg Ketorolac Tromethamine (Toradol) 10 mg PO TID [facility] Stop: 06/21/18 22:29 Last Admin: 06/19/18 06:01 Dose: 10 mg - Objective Vital Signs: Vital Signs Temperature 98.5 F 06/19/18 03:00 Pulse Rate 70 06/19/18 03:00 Respiratory Rate 20 06/19/18 03:00 Blood Pressure 148/86 06/19/18 03:00 O2 Sat by Pulse Oximetry (%) 98 06/18/18 22:00 Constitutional: Yes: No Distress Eyes: Yes: Conjunctiva Clear HENT: Yes: Other (L FACIAL ERYTHEMA/ SWELLING RESOLVED. MINIMAL TENDER L SUBMANDIBULAR ADENOPATHY) Cardiovascular: Yes: Regular Rate and Rhythm, S1, S2 Respiratory: Yes: CTA Bilaterally Gastrointestinal: Yes: Normal Bowel Sounds, Soft. No: Tenderness Labs: CBC, BMP 06/19/18 05:30 06/19/18 05:30 Assessment/Plan L FACIAL CELLULITIS IMPROVED DENTAL INFECTION FAILED OUTPATIENT ORAL ANTIBIOTIC THERAPY MAY SUBSTITUTE AUGMENTIN 875MG PO BID X 7D
[2018-06-19 11:23] VITALS: BP 122/89; TEMP 99
--- NOTE | 2018-06-19 12:07 | DS ---
Physical Exam: SUBJECTIVE: Patient seen and examined at bedside- no acute events overnight patient stats she is feeling better no loner in pain OBJECTIVE: Vital Signs Period Temp Pulse Resp BP Sys/Fernandez Pulse Ox Last 24 Hr 98.5 F-99.0 F 65-71 18-20 122-161/77-89 98-100 PHYSICAL EXAM GENERAL: The patient is awake, alert, and fully oriented, in no acute distress. EYES: PEERLA EOMI no sclerla icterus NECK: no JVD. LUNGS: CTA B/L; no rales, rhonhchi or wheezing HEART: Regular rate and rhythm, S1, S2 without murmur, rub or gallop. ABDOMEN: Soft, nontender, nondistended, normoactive bowel sounds, no guarding, no rebound, no hepatosplenomegaly, no masses. EXTREMITIES: 2+ pulses, warm, well-perfused, no edema. NEUROLOGICAL: Cranial nerves II through XII grossly intact. Normal speech, gait not observed. PSYCH: Normal mood, normal affect. SKIN: Warm, dry, normal turgor, no rashes or lesions noted. LABS Laboratory Results - last 24 hr 06/19/18 06/19/18 05:30 05:30 WBC 7.5 RBC 3.85 Hgb 10.5 L Hct 31.2 L MCV 81.1 MCH 27.3 MCHC 33.7 RDW 14.6 Plt Count 352 MPV 8.0 Sodium 137 Potassium 3.8 Chloride 105 Carbon Dioxide 24 Anion Gap 8 BUN 12 Creatinine 0.5 L Est GFR (CKD-EPI)AfAm 134.52 Est GFR (CKD-EPI)NonAf 116.07 Random Glucose 104 Calcium 9.1 -CT facial bones showed soft tissue swelling in submandibular fossa with lymphadenopathy measuring 1.7cm x 1cm likely 2/2 infectious proces HOSPITAL COURSE: Date of Admission:06/16/18 48 year old female with a hx of obesity, depression and anxiety presents to the hospital for 1 week of left sided facial pain and swelling since a dental procedure on Friday. Reports that she had a root canal Friday with a revision on Friday due to pain, when the dentist shaved down the tooth. Reports the pain improved Friday but swelling on the left side of the face did not. 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 States that perioperatively, she has been on amoxicillin for 2 weeks. States that she has mild pain around her eye but no direct eye pain or pain with extraocular muscle movement. Reports some pain in her throat and pain while chewing. Has been eating a soft diet. Denies fevers, chills, nausea, vomiting, diarrhea, difficulty swallowing. patient was afebrile with no wbc count. she was started on clindmycin then swithced to unasyn- her symptoms improved and she got better and was discharged home with 6 more days of augmentin Date of Discharge: 06/19/18 Minutes to complete discharge: 35 Discharge Summary Reason For Visit: CELLULITIS OF FACE Current Active Problems Facial cellulitis (Acute) Condition: Stable - Instructions Diet, Activity, Other Instructions: You came to the hospital with complaints of left sided facial and under eye swelling after undergoing a two part root canal. We did a cat scan of your facial bones which did not show any signs of fluid collection or abscess. We started you on IV antibiotics, your symptoms improved and you were stable to be discharged home with oral antibiotics. Please resume all of your home medications in addition: please take the antibiotic Augmentin 875mg twice a day for a total of 6 more days. Please take with food. Please follow up with Dr. Perla within one week *if you begin to experience any changes in vision, pain with eye movements, chest pains, shortness of breath, nausea/vomiting, fevers please return to the emergency room immediately Referrals: Vinay Perla MD [Staff Physician] - 1 Week Disposition: HOME - Home Medications Comprehensive Discharge Medication List: Ambulatory Orders Alprazolam [Xanax] 0.5 mg PO PRN 06/16/18 Clonazepam [Klonopin] 2 mg PO HS 06/16/18 Duloxetine HCl [Cymbalta] 60 mg PO BID 06/16/18 Topiramate 100 mg PO DAILY 06/17/18 Amox-Tr/K Cl [Augmentin 875-125mg Tablet -] 1 tab PO BID@0800,1730 #12 tablet Problem List - Problems (1) Facial cellulitis Code(s): L03.211 - CELLULITIS OF FACE This patient is new to me today: No Emergency Visit: Yes ED Registration Date: 06/16/18 Care time: The patient presented to the Emergency Department on the above date and was hospitalized for further evaluation of their emergent condition. Critical Care patient: No - Discharge Referral Referred to [facility] No
--- NOTE | 2018-06-19 14:43 | PN ---
Teaching Attending Note Name of Resident: Sarah Tran ATTENDING PHYSICIAN STATEMENT I saw and evaluated the patient. I reviewed the resident's note and discussed the case with the resident. I agree with the resident's findings and plan as documented. SUBJECTIVE: Feels significant improvement in facial pain/swelling. No fever. No double vision. No eye discharge. No fever/chills. OBJECTIVE: Afebrile, Hemodynamically Stable. Last Vital Signs Temp Pulse Resp BP Pulse Ox 99.0 F 70 18 122/89 100 06/19/18 07:00 06/19/18 07:00 06/19/18 07:00 06/19/18 07:00 06/19/18 11:26 HEENT - L facial swelling/erythema improved. Tenderness resolved. ASHLEY, EOMI. Heart - S1, S2, RRR Lungs - clear to auscultation Abdomen - Soft, non-tender. Bowel Sounds normal. Extremities- no edema, no calf tenderness Laboratory Results - last 24 hr 06/19/18 06/19/18 05:30 05:30 WBC 7.5 RBC 3.85 Hgb 10.5 L Hct 31.2 L MCV 81.1 MCH 27.3 MCHC 33.7 RDW 14.6 Plt Count 352 MPV 8.0 Sodium 137 Potassium 3.8 Chloride 105 Carbon Dioxide 24 Anion Gap 8 BUN 12 Creatinine 0.5 L Est GFR (CKD-EPI)AfAm 134.52 Est GFR (CKD-EPI)NonAf 116.07 Random Glucose 104 Calcium 9.1 Discharge Medications Medication Instructions Recorded Alprazolam [Xanax] 0.5 mg PO PRN 06/16/18 Clonazepam [Klonopin] 2 mg PO HS 06/16/18 Duloxetine HCl [Cymbalta] 60 mg PO BID 06/16/18 Topiramate 100 mg PO DAILY 06/17/18 Amox-Tr/K Cl [Augmentin 875-125mg 1 tab PO BID@0800,1730 #12 tablet 06/19/18 Tablet -] ASSESSMENT AND PLAN: 48 year old female with history of Depression/Anxiety, presents with 3-4 day history of L sided facial pain/swelling/redness s/p dental procedure/root canal 06/12/18 1. Acute Facial Cellulitis secondary to Dental Procedure Failed outpatient treatment with Amoxicillin. Initially treated with Clindamycin, switched to Unasyn - Day 3 CT facial bones shows soft tissue swelling in submandibular fossa with lymphadenopathy, no abscess. Swelling clinically improved. Afebrile, Hemodynamically Stable. ID Following - recommends 7 additional days of oral Augmentin 2. Depression/Anxiety - stable - no SI - Continue Xanax, Klonopin, Cymbalta. Medically improved and stable for discharge on 7 additional days of Augmentin.
== END 2018-06-19 12:22 | disposition home or self-care (01) ==
LOC: JER 15:17 → JERBED 20:56 → J8W 06-17 00:39
PROVIDERS: ADMIT Internal Medicine
PROC: 3E03329 Introduction of Other Anti-infective into Peripheral Vein, Percutaneous Approach (ICD-10-PCS; principal; 2018-06-16)
PROC: 3E0333Z Introduction of Anti-inflammatory into Peripheral Vein, Percutaneous Approach (ICD-10-PCS; 2018-06-16)
PROC: 3E033NZ Introduction of Analgesics, Hypnotics, Sedatives into Peripheral Vein, Percutaneous Approach (ICD-10-PCS; 2018-06-16)
PROC: 3E013GC Introduction of Other Therapeutic Substance into Subcutaneous Tissue, Percutaneous Approach (ICD-10-PCS; 2018-06-16)
PROC: 3E0F7GC Introduction of Other Therapeutic Substance into Respiratory Tract, Via Natural or Artificial Opening (ICD-10-PCS; 2018-06-16)
DX: L03.211 Cellulitis of face (principal); R03.0 Elevated blood-pressure reading, without diagnosis of hypertension; J45.909 Unspecified asthma, uncomplicated; F17.210 Nicotine dependence, cigarettes, uncomplicated; F32.9 Major depressive disorder, single episode, unspecified; F41.9 Anxiety disorder, unspecified; E66.01 Morbid (severe) obesity due to excess calories; Z68.34 Body mass index [BMI] 34.0-34.9, adult
CPT/HCPCS: 36415; 70487-TC; 80048; 80053; 83735; 84100; 84703; 85025; 85027; 87040; 94640; 99285-25; G0378